=== PATIENT | male | born 1955 | race Caucasian/White ===

== ENCOUNTER 2016-05-22 17:55 | Emergency (ER) | payer OTHER ==
[2016-05-22 17:55] VITALS: BMI 31.8
[2016-05-22 18:01] VITALS: BP 160/86; PULSE 56; RESP 18; TEMP 98.1; O2SAT 95
--- NOTE | 2016-05-22 19:26 | C.PDOC ---
History Of Present Illness 60 year old male presents to the ED with complaints of feeling shaky when he doesn't eat. Patient states he has not had solid food in 10 days due to a left lower molar extraction. Denies vomiting, fever, or any other complaints at this time. Time Seen by Provider: 05/22/16 19:07 Chief Complaint (Nursing): Weakness/Neurological Deficit History Per: Patient History/Exam Limitations: no limitations Onset/Duration Of Symptoms: Days Current Symptoms Are (Timing): Still Present Severity: Mild Past Medical History Reviewed: Historical Data, Nursing Documentation, Vital Signs Vital Signs: Last Vital Signs Temp 98.1 F 05/22/16 18:00 Pulse 56 L 05/22/16 18:00 Resp 18 05/22/16 18:00 BP 160/86 H 05/22/16 18:00 Pulse Ox 95 05/22/16 19:30 - Medical History PMH: Cardia Arrhythmia (ATRIAL FIB.), HTN Family History: States: Unknown Family Hx - Social History Hx Alcohol Use: No Hx Substance Use: No - Immunization History Hx Tetanus Toxoid Vaccination: No Hx Influenza Vaccination: No Hx Pneumococcal Vaccination: No Review Of Systems Except As Marked, All Systems Reviewed And Found Negative. Constitutional: Positive for: Other (+Shaky). Negative for: Fever, Chills Cardiovascular: Negative for: Chest Pain Respiratory: Negative for: Shortness of Breath Gastrointestinal: Negative for: Vomiting Physical Exam - Physical Exam Appears: Non-toxic, No Acute Distress Skin: Normal Color, Warm, Dry Head: Atraumatic, Normacephalic Eye(s): bilateral: Normal Inspection Oral Mucosa: Moist Teeth: Other (+Healed left lower molar socket. ) Chest: Symmetrical Respiratory: No Accessory Muscle Use Extremity: Normal ROM, No Deformity Neurological/Psych: Oriented x3, Normal Speech, Normal Cognition, Other (No tremors noted) ED Course And Treatment ECG: Interpreted By Me ECG Rhythm: Sinus Rhythm ECG Interpretation: Normal Rate From EC O2 Sat by Pulse Oximetry: 95 (Room air) Pulse Ox Interpretation: Normal Progress Note: EKG ordered and reviewed. Finger stick done. Medical Decision Making Medical Decision Making: pt eating liquid diet since L lower molar extraction last week, feels tremulous when hungry, not diabetic, no insulin use. normal FS in ED recommended mechanical soft diet. Disposition Doctor Will See Patient In The: Office Counseled Patient/Family Regarding: Studies Performed, Diagnosis - Disposition Referrals: Duane Fry MD [Medical Doctor] - Disposition: HOME/ ROUTINE Disposition Time: 19:26 Condition: GOOD Additional Instructions: come christiano dieta normal Sigue con carpio dentista/Dr. Fry kevon necessario. Instructions: Anxiety (ED) Print Language: GERMAN - Clinical Impression Clinical Impression: Anxiety - Scribe Statement The provider has reviewed the documentation as recorded by the Scribe Mick Rosas. Provider Attestation: All medical record entries made by the Scribe were at my direction and personally dictated by me. I have reviewed the chart and agree that the record accurately reflects my personal performance of the history, physical exam, medical decision making, and the department course for this patient. I have also personally directed, reviewed, and agree with the discharge instructions and disposition.
--- NOTE | 2016-05-25 15:22 | CARD ---
APPROVED REPORT EKG Measurement Heart [id number] <Conclusion> Sinus rhythm with premature atrial complexes with aberrant conduction Otherwise normal ECG
== END 2016-05-22 19:21 | disposition home or self-care (01) ==
LOC: C.ER 17:55
DX: F41.9 Anxiety disorder, unspecified (principal)